=== PATIENT | male | born 1955 | race Caucasian/White ===

== ENCOUNTER 2018-07-21 05:57 | Day surgery (SDC) | payer BC ==
[~2018-07-21 05:57] MED LIST: Lidocaine 1%/Sod Bicarbonate in NS 8.4% 1 ML Syringe IDERM PRN; Sodium Chloride 0.9% 10 ML Syringe FLUSH PRN
[2018-07-21] MEDS ORDERED: EPINEPHrine 1 MG/ML SDV ONE (06:06)
[2018-07-21] MEDS ORDERED: Ropivacaine 0.5% 5 MG/ML 30 ML SDV ONE (06:06)
[2018-07-21] MEDS ORDERED: Midazolam 1 MG/ML 2 ML SDV ONE (06:07)
[2018-07-21] MEDS ORDERED: Rocuronium 50 MG/5 ML Vial ONE (06:07)
[2018-07-21] MEDS ORDERED: fentaNYL 250 MCG/5 ML SDV ONE (06:07)
[2018-07-21] MEDS ORDERED: Ondansetron 4 MG/2 ML SDV ONE (06:07)
[2018-07-21] MEDS ORDERED: Lidocaine 1% 4 ML ONE ×2 (06:07)
[2018-07-21] MEDS ORDERED: Propofol 200 MG/20 ML SDV ONE (06:07)
[2018-07-21] MEDS ORDERED: ceFAZolin 1 GM Vial ONE (06:08)
[2018-07-21] MEDS: Lactated Ringers 1,000 ML IV SCH ×2 (06:20→09:19)
--- NOTE | 2018-07-21 06:28 | PCM.PREANE ---
Preanesthetic Assessment - Procedure Proposed Procedure: left shoulder video arthroscopy with rotator cuff repair - Anesthesia/Transfusion/Family Hx Anesthesia History: Prior Anesthesia Without Reaction Family History of Anesthesia Reaction: No Transfusion History: No Prior Transfusion(s) - Review of Systems General: No Symptoms Pulmonary: No Symptoms Cardiovascular: No Symptoms Gastrointestinal: No Symptoms Neurological: No Symptoms, Other (numb fingers when sleep) Other: Reports: None, Neck Pain (bone spur in neck- no pain tho) - Physical Assessment NPO Status Date: 07/20/18 NPO Status Time: 20:00 O2 Sat by Pulse Oximetry: 96 Respiratory Rate: 16 Vital Signs: Last Vital Signs Temp 97.1 F 07/21/18 06:05 Pulse 74 07/21/18 06:05 Resp 16 07/21/18 06:05 BP 139/82 07/21/18 06:05 Pulse Ox 96 07/21/18 06:05 Height: 5 ft 7 in Weight: 80.739 kg ASA Class: 2 Mental Status: Alert & Oriented x3 Airway Class: Mallampati = 1 Dentition: Reports: Normal Dentition, Implants (pin in front tooth) Thyro-Mental Finger Breadths: 3 Mouth Opening Finger Breadths: 3 ROM/Head Extension: Full Lungs: Clear to Auscultation, Normal Respiratory Effort Cardiovascular: Regular Rate, Regular Rhythm - Lab Values: Laboratory Last Values MRSA (PCR) Negative 07/16/18 13:19 - Allergies Allergies/Adverse Reactions: Allergies Allergy/AdvReac Type Severity Reaction Status Date / Time No Known Allergies Allergy Verified 07/20/18 12:05 - Blood Blood Available: No - Acknowledgements Anesthesia Type Planned: General Anesthesia Pt an Appropriate Candidate for the Planned Anesthesia: Yes Alternatives and Risks of Anesthesia Discussed w Pt/Guardian: Yes Pt/Guardian Understands and Agrees with Anesthesia Plan: Yes PreAnesthesia Questionnaire HEENT History: Reports: Glaucoma, Impaired Vision, Other (See Below) Other HEENT History: blind in left eye Cardiovascular History: Reports: High Cholesterol Respiratory History: Reports: None Gastrointestinal History: Reports: GERD Genitourinary History: Reports: Other (See Below) Other Genitourinary History: elevated PSA, testicular cancer, right orchiectomy TAILINGS MAN History: Reports: None Musculoskeletal History: Reports: Other (See Below) Other Musculoskeletal History: left shoulder pain, lumbar radiculopathy, carpal tunnel syndrome, right ulnar nerve entrapment Psychiatric History: Reports: None Endocrine/Metabolic History: Reports: None Hematologic History: Reports: None Immunologic History: Reports: None Oncologic (Cancer) History: Reports: Other (See Below) Other Oncologic History: testicular Other Dermatologic History: abdominal wall lipoma - Past Surgical History Head Surgeries/Procedures: Reports: None HEENT Surgical History: Reports: Eye Surgery Cardiovascular Surgical History: Reports: None Respiratory Surgical History: Reports: None GI Surgical History: Reports: Colonoscopy Female Surgical History: Reports: None Male Surgical History: Reports: None, Other (See Below) (testicular cancer removed 1 in 2008) Endocrine Surgical History: Reports: None Neurological Surgical History: Reports: Spinal Fusion, Other (See Below) Other Neurological Surgeries/Procedures: L3L4 fusion, spine surgery x3 Musculoskeletal Surgical History: Reports: Other (See Below) Other Musculoskeletal Surgeries/Procedures:: toe amputation, knee surgery Oncologic Surgical History: Reports: None - SUBSTANCE USE Smoking Status *Q: Former Smoker (quit when he was 17 years old) Tobacco Use Within Last Twelve Months: No Second Hand Smoke Exposure: No Days Per Week of Alcohol Use: 1 Number of Drinks Per Day: 2 Total Drinks Per Week: 2 Recreational Drug Use History: No - HOME MEDS Home Medications: Home Meds Latanoprost 1 drop EYERT BEDTIME 07/20/18 [History] Lisinopril 5 mg PO DAILY 07/20/18 [History] Omeprazole Magnesium [Prilosec Otc] 40 mg PO DAILY 07/20/18 [History] Rosuvastatin [Crestor] 10 mg PO BEDTIME 07/20/18 [History] diazePAM [Valium] 5 mg PO BEDTIME 07/20/18 [History] - CURRENT (IN HOUSE) MEDS Current Meds: Current Medications Epinephrine HCl (Adrenalin) 3 mg .XX ONETIME ONE Stop: 07/21/18 08:01 Lactated Ringer's (Ringers, Lactated) 1,000 mls @ 125 mls/hr IV ASDIRECTED TEA Stop: 07/21/18 23:00 Lidocaine/Sodium Bicarbonate (Buffered Lidocaine 1% In Ns 8.4%) 0.25 ml IDERM ONETIME PRN PRN Reason: Prior to IV Start Stop: 07/21/18 18:00 Sodium Chloride (Saline Flush) 10 ml FLUSH ASDIRECTED PRN PRN Reason: Keep Vein Open Stop: 07/21/18 18:00 Discontinued Medications Cefazolin Sodium (Ancef) Confirm Administered Dose 2 gm .ROUTE .STK-MED ONE Stop: 07/21/18 06:09 Epinephrine HCl (Adrenalin) Confirm Administered Dose 1 mg .ROUTE .STK-MED ONE Stop: 07/21/18 06:07 Fentanyl (Sublimaze) Confirm Administered Dose 250 mcg .ROUTE .STK-MED ONE Stop: 07/21/18 06:08 Lidocaine HCl (Xylocaine-Mpf 1%) Confirm Administered Dose 4 mls @ as directed .ROUTE .STK-MED ONE Stop: 07/21/18 06:08 Lidocaine HCl (Xylocaine-Mpf 1%) Confirm Administered Dose 4 mls @ as directed .ROUTE .STK-MED ONE Stop: 07/21/18 06:08 Midazolam HCl (Versed 1 Mg/Ml) Confirm Administered Dose 2 mg .ROUTE .STK-MED ONE Stop: 07/21/18 06:08 Ondansetron HCl (Zofran) Confirm Administered Dose 4 mg .ROUTE .STK-MED ONE Stop: 07/21/18 06:08 Propofol (Diprivan 20 Ml) Confirm Administered Dose 200 mg .ROUTE .STK-MED ONE Stop: 07/21/18 06:08 Rocuronium Manito (Zemuron) Confirm Administered Dose 50 mg .ROUTE .STK-MED ONE Stop: 07/21/18 06:08 Ropivacaine (Naropin 0.5%) Confirm Administered Dose 30 ml .ROUTE .STK-MED ONE Stop: 07/21/18 06:07
[2018-07-21] MEDS ORDERED: Bupivacaine 0.25% 30 ML SDV ONE (06:48)
[2018-07-21] MEDS ORDERED: Ondansetron 4 MG/2 ML SDV IVPUSH PRN (07:30)
[2018-07-21] MEDS ORDERED: fentaNYL 100 MCG/2 ML SDV IVPUSH PRN (07:30)
[2018-07-21] MEDS ORDERED: HYDROmorphone 0.5 MG/0.5 ML Syringe IVPUSH PRN (07:30)
[2018-07-21] MEDS ORDERED: EPINEPHrine 1 MG/ML 30 ML MDV ONE (08:00)
[2018-07-21] MEDS ORDERED: Neostigmine Methylsulfate 1 MG/ML 5 ML Syringe ONE (08:06)
[2018-07-21] MEDS ORDERED: Glycopyrrolate 0.2 MG/ML SDV ONE ×2 (08:06)
[2018-07-21] MEDS ORDERED: Ketorolac 30 MG/ML SDV ONE (08:07)
[2018-07-21] MEDS ORDERED: Lactated Ringers 1,000 ML ONE (08:20)
--- NOTE | 2018-07-21 08:54 | PCM.POSTAN ---
POST ANESTHESIA ASSESSMENT - MENTAL STATUS Mental Status: Somnolent - VITAL SIGNS Pulse Rate: 87 SaO2: 94 Resp Rate: 13 Blood Pressure: 152/92 Temperature: 97.3 F - RESPIRATORY Respiratory Status: Respiratory Rate WNL, Airway Patent, O2 Saturation Stable, Supplemental Oxygen - CARDIOVASCULAR CV Status: Pulse Rate WNL, Blood Pressure Stable - GASTROINTESTINAL GI Status: No Symptoms - PAIN Pain Score: 0 - POST OP HYDRATION Hydration Status: Adequate & Stable
--- NOTE | 2018-07-21 09:21 | PCM.SN ---
- Free Text/Narrative Note: Date:07/21/18 Time out: 0640 Start time:640 End time: [address] left interscale block with ultrasound guidance and nerve stimulator for post op pain control per Dr. Morales and patient. Preop diagnosis left shoulder pain. Procedure is left shoulder arthrosocpy with rotator cuff repair Informed consent obtained. Monitors and O2 placed at 2 l per n/c. Versed 2 mg and Fentanyl 100 mcg given IV total. Patient awake and talking during procedure. Left neck and clavicle area prepped with chlorprep. Sterile gloves, hat and mask worn. US probe with sterile sleeve placed midclavicular with ID of brachial plexus and subclavian artery. Brachial plexus followed cephalad to level of cricoid. Lidocaine 1% local anesthetic injected prior to block placement. 22 g 2 inch stimplex needle advanced with US guidance to brachial plexus. Positive forearm response at ..4mA with nerve stimulator. Ceased with saline injection.Ropivacaine 0.5% with epi 1:200,000 injected in increments of 5 ml with negative aspiration before each injection to a total of 30 ml. Good spread of local anesthetic seen on US. Patient tolerated procedure well. Vitals stable with no complaints.
--- NOTE | 2018-07-21 10:27 | PCM48HPAN ---
Post Anesthesia Note - EVALUATION WITHIN 48HRS OF ANESTHETIC Vital Signs in Normal Range: Yes Patient Participated in Evaluation: Yes Respiratory Function Stable: Yes Airway Patent: Yes Cardiovascular Function Stable: Yes Hydration Status Stable: Yes Pain Control Satisfactory: Yes Nausea and Vomiting Control Satisfactory: Yes Mental Status Recovered: Yes (very pleased with the care. Arm still numb) Pulse Rate: 87 Resp Rate: 16 Temperature: 97.3 F Blood Pressure: 152/92
--- NOTE | 2018-07-26 07:03 | PCM.OPNOTE ---
- General Post-Op/Procedure Note Date of Surgery/Procedure: 07/21/18 Operative Procedure(s): left shoulder video arthroscopy with rotator cuff repair , extensive debridement and subacromial decompression Pre Op Diagnosis: left shoulder rotator cuff tear with impingement Post-Op Diagnosis: Same Anesthesia Technique: General ET Tube, Regional Block Primary Surgeon: Hector Morales Anesthesia Provider: Antony Fernandes Rewind Operator: Keren Wiley EBL in mLs: 5 Complications: None Condition: Good
--- NOTE | 2018-07-26 07:39 | OR ---
DATE OF OPERATION: 07/21/2018 SURGEON: Hector Morales MD OPERATION PERFORMED: Left shoulder video arthroscopy with rotator cuff repair, extensive debridement, and subacromial decompression. PREOPERATIVE DIAGNOSIS: Left shoulder rotator cuff tear with impingement. POSTOPERATIVE DIAGNOSIS: Left shoulder rotator cuff tear with impingement. ANESTHESIA: General endotracheal intubation with regional interscalene block. ANESTHESIA PROVIDER: Antony Fernandes CRNA. SPORTS BOOK SERVER: Keren Wiley PA-C. ESTIMATED BLOOD LOSS: Less than 5 mL. COMPLICATIONS: None. CONDITION: Stable. DESCRIPTION OF PROCEDURE: The patient was identified in the preop holding area. Proper site was marked and identified by the surgeon. The patient was taken back to the operating theater, where after adequate anesthesia, the patient was placed in the lazy right lateral decubitus position. A wedge was placed posteriorly. The patient was secured to the table. At this time, left upper extremity was sterilely prepped and draped in usual sterile fashion. OR time-out was performed. The patient received 2 g of IV Ancef. At this time, 15 pounds of traction was applied to the left upper extremity. Standard posterior incision was made. Scope trocar was introduced to the glenohumeral joint. Glenohumeral joint showed no signs of chondromalacia. Biceps tendon was intact, showed no signs of pathology. The patient was noted to have anterior supraspinatus tear, full thickness. The labrum showed no signs of pathology. Subscapularis tendon was intact. At this time, attention was turned to the subacromial space. The patient was noted to have a large amount of bursitis in the subacromial space and an extensive debridement was done of the bursitis as well as synovial tissue in this region. At this time, the tear was identified. A good bony bleeding bed was then created using a full radius resector down to a bleeding bone. At this time, a 4.75 mm Arthrex SwiveLock anchor was placed medially. Two limbs of FiberTape along with 2 limbs of FiberWire were then placed across the tear. The limbs of FiberWire were then tied for a medial row repair. Another 4.75 mm Arthrex SwiveLock was then placed laterally. All the previous medial sutures were brought through it and were tensioned, and then that anchor was then placed. He was noted to have adequate watertight repair of the previous tear. At this time, the patient was noted to have a type 3 acromion and a subacromial decompression and an acromioplasty was then performed back to a smooth border with posterior rim. Excess saline was drained from the shoulder. 3-0 nylon sutures were used for closure of the skin. The patient was placed in a sterile soft dressing and a pillow sling and sent to the PACU in stable condition. BRADEN /[id number]
== END 2018-07-21 11:50 | disposition home or self-care (01) ==
LOC: JD.SDS 05:57
PROVIDERS: ATTEND Orthopaedic Surgery
DX: M75.122 Complete rotator cuff tear or rupture of left shoulder, not specified as traumatic (principal); M75.42 Impingement syndrome of left shoulder; M75.52 Bursitis of left shoulder; I10 Essential (primary) hypertension; E78.00 Pure hypercholesterolemia, unspecified; K21.9 Gastro-esophageal reflux disease without esophagitis; G89.18 Other acute postprocedural pain; Z87.891 Personal history of nicotine dependence; Z79.899 Other long term (current) drug therapy
CPT/HCPCS: 29826; 29827; 64415; 87641; 93005; C1713; J0171; J0690; J1885; J2001; J2250; J2405; J2704; J2710; J2795; J3010; J3490; J7120; 01630

== ENCOUNTER 2019-03-15 08:41 | Day surgery (SDC) | payer BC ==
[~2019-03-15 08:41] MED LIST changes: +Lactated Ringers 1,000 ML IV SCH
[2019-03-15] MEDS ORDERED: Lidocaine 1% 4 ML ONE (09:18)
[2019-03-15] MEDS ORDERED: Propofol 200 MG/20 ML SDV ONE ×4 (09:18→10:46)
[2019-03-15] MEDS ORDERED: fentaNYL 100 MCG/2 ML SDV ONE (09:18)
--- NOTE | 2019-03-15 09:26 | PCM.PREANE ---
Preanesthetic Assessment - Anesthesia/Transfusion/Family Hx Anesthesia History: Prior Anesthesia Without Reaction Family History of Anesthesia Reaction: No Transfusion History: No Prior Transfusion(s) Intubation History: Unknown - Review of Systems General: No Symptoms (Blind on left eye.), Fatigue Pulmonary: No Symptoms (quit smoking at age of 17/ ETOH occasionally), Cough ( Morning cough with phlegm) Cardiovascular: No Symptoms (HTN, Elevated cholesterol) Gastrointestinal: No Symptoms (GERD on occasion), Abdominal Pain (dull 2/10), Decreased Appetite Neurological: No Symptoms (Lower back Pain: history of L3-4 fusion 2015), Tingling (bilateral hands due to bone spur in neck(exasperated when sleeping)) Other: Reports: None (restless leg syndrome on diazepam for that.), Neck Pain - Physical Assessment NPO Status Date: 03/14/19 NPO Status Time: 04:00 Vital Signs: HR: 86 BP: 158/86 Resp: 16 Temp: 98.1 Sat: 96% Height: 1.73 m Weight: 80.739 kg ASA Class: 2 Mental Status: Alert & Oriented x3 Airway Class: Mallampati = 2 Dentition: Reports: Normal Dentition, Caries Thyro-Mental Finger Breadths: 3 Mouth Opening Finger Breadths: 3 ROM/Head Extension: Full Lungs: Clear to Auscultation, Normal Respiratory Effort Cardiovascular: Regular Rate, Regular Rhythm, No Murmurs - Imaging/EKG Impressions: EKG: SR rate=67 - Allergies Allergies/Adverse Reactions: Allergies Allergy/AdvReac Type Severity Reaction Status Date / Time No Known Allergies Allergy Verified 03/14/19 14:37 - Anesthesia Plan Pre-Op Medication Ordered: None - Acknowledgements Anesthesia Type Planned: MAC Pt an Appropriate Candidate for the Planned Anesthesia: Yes Alternatives and Risks of Anesthesia Discussed w Pt/Guardian: Yes Pt/Guardian Understands and Agrees with Anesthesia Plan: Yes PreAnesthesia Questionnaire HEENT History: Reports: Glaucoma, Impaired Vision, Other (See Below) Other HEENT History: blind in left eye Cardiovascular History: Reports: High Cholesterol, Hypertension Respiratory History: Reports: None Gastrointestinal History: Reports: GERD, Hemorrhoids Genitourinary History: Reports: Other (See Below) Other Genitourinary History: elevated PSA, testicular cancer, right orchiectomy LEADER WRITER History: Reports: None Musculoskeletal History: Reports: Other (See Below) Other Musculoskeletal History: left shoulder pain, lumbar radiculopathy, carpal tunnel syndrome, right ulnar nerve entrapment Neurological History: Reports: None Psychiatric History: Reports: None Endocrine/Metabolic History: Reports: None Hematologic History: Reports: None Other Hematologic History: hyperuricemia Immunologic History: Reports: None Oncologic (Cancer) History: Reports: Other (See Below) Other Oncologic History: testicular Other Dermatologic History: abdominal wall lipoma - Past Surgical History Head Surgeries/Procedures: Reports: None HEENT Surgical History: Reports: Cataract Surgery, Eye Surgery Cardiovascular Surgical History: Reports: None Respiratory Surgical History: Reports: None GI Surgical History: Reports: Colonoscopy Female Surgical History: Reports: None Male Surgical History: Reports: None, Other (See Below) Endocrine Surgical History: Reports: None Neurological Surgical History: Reports: Spinal Fusion, Other (See Below) Other Neurological Surgeries/Procedures: L3L4 fusion, spine surgery x3 Musculoskeletal Surgical History: Reports: Arthroscopic Knee, Shoulder Surgery, Other (See Below) Other Musculoskeletal Surgeries/Procedures:: toe amputation, knee surgery, left RC repair Oncologic Surgical History: Reports: None - SUBSTANCE USE Smoking Status *Q: Never Smoker Recreational Drug Use History: No - HOME MEDS Home Medications: Home Meds Lisinopril 5 mg PO DAILY 07/20/18 [History] Omeprazole Magnesium [Prilosec Otc] 40 mg PO DAILY 07/20/18 [History] Rosuvastatin [Crestor] 10 mg PO BEDTIME 07/20/18 [History] diazePAM [Valium] 5 mg PO BEDTIME 07/20/18 [History] Allopurinol [Zyloprim] 100 mg PO DAILY 03/14/19 [History] Brimonidine/Timolol [Combigan 0.2%/0.5% Ophth Soln] 1 drop EYEBOTH DAILY [History] Latanoprost 1 drop EYERT DAILY 03/14/19 [History] Ubidecarenone [Coq-10] 100 mg PO DAILY 03/14/19 [History] - CURRENT (IN HOUSE) MEDS Current Meds: Current Medications Lactated Ringer's (Ringers, Lactated) 1,000 mls @ 125 mls/hr IV ASDIRECTED TEA Stop: 03/15/19 23:00 Lidocaine/Sodium Bicarbonate (Buffered Lidocaine 1% In Ns 8.4%) 0.25 ml IDERM ONETIME PRN PRN Reason: Prior to IV Start Stop: 03/15/19 23:00 Sodium Chloride (Saline Flush) 10 ml FLUSH ASDIRECTED PRN PRN Reason: Keep Vein Open Stop: 03/15/19 23:00
--- NOTE | 2019-03-15 11:02 | PCM.PRNOTE ---
- Free Text/Narrative Note: Date: 03/15/2019 Endoscopist: Negro Allan MD Pre-op diagnosis: GI bleed Procedure: esophagogastroduodenoscopy, colonoscopy Findings: mild proximal gastric inflammation, small hiatal hernia. several small fundic gland polyps. Prolapsing hemorrhoids. Ascending colon pedunculated polyp. Mild diverticular disease. Prep was very good, ileocecal valve reached. Detailed Report: Patient was taken to the GI suite and placed in left lateral decubitus position. A bite-block was placed, and monitored sedation initiated. The endoscope was advanced from the mouth to the second portion of the duodenum. There appeared to be mild exudative change of the duodenal mucosa, this was biopsied. No ulcers or other lesions were identified. The pyloric antrum appeared normal, a biopsy was obtained to rule out H. pylori. The remainder of the gastric mucosa was inspected, and several subcentimeter benign-appearing polyps which looked like fundic gland polyps were visualized. 2 of these polyps were biopsied. On retroflexion of the scope, there appeared to be mild inflammatory change of the gastric cardia. This was biopsied. There did seem to be a small hiatal hernia, but no esophageal pathology was identified. Next, colonoscopy was performed. Inspection of the anus revealed prolapsing hemorrhoids. Digital rectal exam was otherwise unremarkable. The colonoscope was advanced all the way to the ileocecal valve, the prep was noted to be very good. In the ascending colon, a small pedunculated polyp was identified. The hot snare was used to remove the polyp at its base. No other polyps were identified during slow retraction of the scope. Mild diverticular disease was noted in the sigmoid colon. Retroflexion within the rectum was unremarkable. Patient tolerated the procedure well. Negro Allan MD General Surgery
--- NOTE | 2019-03-15 11:12 | PCM48HPAN ---
Post Anesthesia Note - EVALUATION WITHIN 48HRS OF ANESTHETIC Vital Signs in Normal Range: Yes Patient Participated in Evaluation: Yes Respiratory Function Stable: Yes Airway Patent: Yes Cardiovascular Function Stable: Yes Hydration Status Stable: Yes Pain Control Satisfactory: Yes Nausea and Vomiting Control Satisfactory: Yes Mental Status Recovered: Yes Vital Signs: Last Vital Signs Temp 36.2 C 03/15/19 10:55 Pulse 80 03/15/19 10:55 Resp 16 03/15/19 10:55 BP 104/75 03/15/19 10:55 Pulse Ox 95 03/15/19 10:55
== END 2019-03-15 11:44 | disposition home or self-care (01) ==
LOC: JD.SDS 08:41
PROVIDERS: ATTEND Surgery
DX: D12.2 Benign neoplasm of ascending colon (principal); K31.7 Polyp of stomach and duodenum; K31.89 Other diseases of stomach and duodenum; K29.51 Unspecified chronic gastritis with bleeding; K44.9 Diaphragmatic hernia without obstruction or gangrene; K64.9 Unspecified hemorrhoids; K57.31 Diverticulosis of large intestine without perforation or abscess with bleeding; K21.9 Gastro-esophageal reflux disease without esophagitis; E78.00 Pure hypercholesterolemia, unspecified; M19.90 Unspecified osteoarthritis, unspecified site; N42.9 Disorder of prostate, unspecified; I10 Essential (primary) hypertension; E79.0 Hyperuricemia without signs of inflammatory arthritis and tophaceous disease; Z79.899 Other long term (current) drug therapy
CPT/HCPCS: 43239; 45385; J2001; J2704; J3010; J7120

== ENCOUNTER 2024-01-27 06:15 | Day surgery (SDC) | payer MEDICARE, OTHER ==
[~2024-01-27 06:15] MED LIST changes: +Lidocaine 1% 5 ML VIAL ONE; -Lidocaine 1%/Sod Bicarbonate in NS 8.4% 1 ML Syringe IDERM PRN; +Midazolam 1 MG/ML 2 ML SDV ONE; +Propofol 200 MG/20 ML SDV ONE; +Sodium Chloride 0.9% 10 ML Syringe FLUSH SCH; +fentaNYL 100 MCG/2 ML SDV ONE
[2024-01-27] MEDS ORDERED: fentaNYL 100 MCG/2 ML SDV IVPUSH PRN (06:29)
[2024-01-27] MEDS ORDERED: HYDROmorphone 0.5 MG/0.5 ML Syringe IVPUSH PRN (06:29)
[2024-01-27] MEDS ORDERED: Ondansetron 4 MG/2 ML SDV IVPUSH PRN (06:29)
[2024-01-27] MEDS: Bupivacaine 0.25% 10 ML SDV ONE ×2 (08:29→08:34)
[2024-01-27] MEDS: Lidocaine 1% 10 ML MDV ONE (08:32)
[2024-01-27] MEDS: Triamcinolone Acetonide 40 MG/ML 1 ML SDV ONE (08:39)
[2024-01-27] MEDS ORDERED: Lactated Ringers 1,000 ML IV SCH (09:30)
== END 2024-01-27 08:35 | disposition home or self-care (01) ==
LOC: JD.SDS 06:15
PROVIDERS: ATTEND Orthopaedic Surgery
DX: G56.11 Other lesions of median nerve, right upper limb (principal); F41.9 Anxiety disorder, unspecified; I10 Essential (primary) hypertension; E78.5 Hyperlipidemia, unspecified; K21.9 Gastro-esophageal reflux disease without esophagitis; Z79.899 Other long term (current) drug therapy
CPT/HCPCS: 64721; J0665; J2250; J2704; J3010; J3301; J7120; 01810; J3490